=== PATIENT | female | born 1940 | race Caucasian/White ===

== ENCOUNTER 2016-09-14 05:54 | Day surgery (SDC) | payer MEDICARE, BC ==
[2016-09-07 14:04] LABS: HEMATOCRIT 40.8 % (36.0-48.0)
[2016-09-07 14:16] LABS: BUN (BLOOD UREA NITROGEN) 11 MG/DL (6-23); CALCIUM, SERUM 9.7 MG/DL (8.5-10.4); CHLORIDE, SERUM 101 MMOL/L (96-112); CO2 (CARBON DIOXIDE) 34 MMOL/L (24-34); CREATININE 1.06 MG/DL (0.55-1.02); GFR AFRICAN AMERICAN 59 ML/MIN (>=60); GFR NON AFRICAN AMERICAN 51 ML/MIN (>=60); GLUCOSE, SERUM 102 MG/DL (60-99); POTASSIUM, SERUM 4.3 MMOL/L (3.5-5.3); SODIUM, SERUM 139 MMOL/L (135-148)
--- NOTE | ~2016-09-14 | OP ---
Record Of Operation [facility] [address] [place]. [address] NAME: CORAZON SIMON : 40 STATUS : [facility]#: [id number] AGE: 76 ADM/REG DATE : 09/14/16 MR#: [id number] REPORT SERV DATE: 09/17/16 DICTATED BY: ALYCE TAVERAS DATE: 09/17/16 REPORT STATUS : Draft TRANSCRIBED BY: DENNY DATE: 09/17/16 DATE OF PROCEDURE: 09/14/2016 PREOPERATIVE DIAGNOSES: 1. Mechanical upper eyelid, ptosis, bilateral. 2. Dermatochalasis bilateral. POSTOPERATIVE DIAGNOSES: 1. Mechanical upper eyelid, ptosis, bilateral. 2. Dermatochalasis bilateral. PROCEDURE: 1. Bilateral levator repair, anterior approach. 2. Bilateral upper eyelid blepharoplasty with excision of excessive skin and tissues. ANESTHESIA: Local infiltration with IV monitored anesthesia care. ANESTHESIA AGENT: Lidocaine 2% with epinephrine mixed 50:50 with 0.75% Marcaine with Hylenex added. DESCRIPTION OF PROCEDURE: After informed consent was obtained, the patient was taken to the preop area and placed in a seated position. Upper eyelid crease was delineated, excess skin was grasped with a hemostat, and a superior ellipse of skin was delineated, grasped with forceps, and a superior ellipse of skin was delineated for removal. The upper eyelid margin was marked corresponding to medial limbus pupil and 2 mm lateral to the temporal limbus to aid in suture placement. The patient was then placed in a supine position under IV monitored anesthesia care. Total of 8-10 mL was injected into the upper eyelids after several minutes, adequate anesthesia was obtained, the patient was taken to the operating room and kept in a supine position. She was prepped and draped in the usual sterile fashion. Topical tetracaine drops were instilled and corneal protectors were put on the eyes. Bridle sutures of 4-0 silk were placed through the lash line of the both upper eyelids to aid in traction. Attention was directed to the left upper eyelid. A #15 blade was used to incise through the delineated upper eyelid crease and ellipse of skin for removal. Subcutaneous tissues were removed with Blas scissors. Hemostasis was achieved as needed with bipolar cautery. Blunt and sharp dissection was performed down through orbital septum. A small amount of prolapsed orbital fat was grasped with a hemostat excised and then cauterized before release back into the orbit. The levator aponeurotic complex was identified in the superior dehisced position. This was reattached to the anterior superior tarsal plate using three horizontal mattress sutures of 6-0 Prolene. Attention was directed to the right upper lid. A 15 blade was used to incise through the delineated upper eyelid crease and ellipse of skin for removal. The skin and subcutaneous tissues were removed with Blas scissors. Hemostasis was achieved as needed with bipolar cautery. Blunt and sharp dissection was performed down through orbital septum. A small amount of prolapsed orbital fat was grasped with a hemostat, excised, and cauterized before release back into the orbit. The levator aponeurotic complex was identified in the superior dehisced position. This was reattached to the anterior superior tarsal plate using three horizontal mattress sutures of Record Of Operation [address] [address] NAME: CORAZON SIMON : 40 STATUS : [facility] PAT#: [id number] AGE: 76 ADM/REG DATE : 09/14/16 MR#: [id number] REPORT SERV DATE: 09/17/16 DICTATED BY: ALYCE TAVERAS DATE: 09/17/16 REPORT STATUS : Draft TRANSCRIBED BY: DENNY DATE: 09/17/16 6-0 Prolene. Corneal protectors were removed and eyelid position was checked for symmetry. Additional tetracaine was instilled, and the protectors were replaced. The skin of both upper eyelids was closed with running sutures of 6-0 nylon with care taken to reform the upper eyelid crease. The corneal protectors were then removed and bridle sutures were removed. Topical qlethcpw-lkqkxdsnk-yrcqkqkvcz-hydrocortisone ointment was placed on the wounds with cold icy compresses. The patient was taken to the recovery area in a stable condition. ESTIMATED BLOOD LOSS: Less than 5 mL. BRANDO/DENNY Alyce Taveras M.D. / [id number] CC: Alberto Mitchell M.D.
[~2016-09-14 05:54] MED LIST: ASAB PO; ATEN25 PO; LIPITOR10 PO; PRINZIDE1 TA1 PO; ZOCOR20 PO
== END 2016-09-14 15:09 | disposition home or self-care (01) ==
LOC: SDC 05:54
PROVIDERS: Ophthalmology
PROC: 080NXZZ Alteration of Right Upper Eyelid, External Approach (ICD-10-PCS; 2016-09-14)
PROC: 080PXZZ Alteration of Left Upper Eyelid, External Approach (ICD-10-PCS; principal; 2016-09-14 07:45)
DX: H02.413 Mechanical ptosis of bilateral eyelids (principal); I78.1 Nevus, non-neoplastic; H02.834 Dermatochalasis of left upper eyelid; H02.831 Dermatochalasis of right upper eyelid; I10 Essential (primary) hypertension; J40 Bronchitis, not specified as acute or chronic; Z98.41 Cataract extraction status, right eye; Z98.42 Cataract extraction status, left eye; Z96.1 Presence of intraocular lens; M19.90 Unspecified osteoarthritis, unspecified site; Z90.710 Acquired absence of both cervix and uterus; Z98.890 Other specified postprocedural states
CPT/HCPCS: 80048; 85014; 85018; 88305; 93005; J2405; J3473